=== PATIENT | female | born 1985 | race Caucasian/White ===

== ENCOUNTER 2019-10-22 21:40 | Inpatient (IN) ==
[2019-10-22] MEDS ORDERED: Lactated Ringers 1000 ml BAG 1,000 ML IV ONE (22:44)
[2019-10-22] MEDS ORDERED: Lactated Ringers 1000 ml BAG 1,000 ML IV SCH (23:00)
[2019-10-23] LABS: Urine Benzodiazepine Screen None Detected (None Detect); Urine Cannabinoids Screen None Detected (None Detect)
[2019-10-23] MEDS ORDERED: Oxytocin in LR 20 UNITS/1,000 ML BAG IVPB ONE (00:40)
[2019-10-23] MEDS ORDERED: Oxytocin 10 UNITS/ML 1 ML VIAL ONE (00:40)
[2019-10-23 01:34] LABS: Hematocrit 35 % (35-47); Mean Corpuscular HGB Conc 34 g/dL (31-36); Mean Corpuscular Hemoglobin 32 pg (27-31); Mean Corpuscular Volume 94 fL (80-97); Platelet Count 239 10^3/uL (150-450); Red Blood Count 3.72 10^6 /uL (3.70-4.87); Red Cell Distribution Width 14 % (10-15); White Blood Count 19.2 10^3/uL (3.5-10.8)
[2019-10-23] MEDS ORDERED: Lidocaine 1% VIAL 10 MG/ML VIAL ONE (02:23)
[2019-10-23] MEDS ORDERED: Methylergonovine 0.2 mg AMPULE 1 ml AMP ONE (02:23)
[2019-10-23] MEDS ORDERED: Methylergonovine 0.2 mg AMPULE 1 ml AMP IM ONE (02:29)
[2019-10-23] MEDS ORDERED: Oxytocin 10 UNITS/ML 1 ML VIAL IM ONE (02:29)
[2019-10-23] MEDS ORDERED: Glycerin ADULT 2.4 gm SUPP PR PRN (02:29)
[2019-10-23] MEDS ORDERED: Ammonia Inhalant 1 EA AMP ONE (02:58)
[2019-10-23] MEDS ORDERED: Oxytocin in LR 20 UNITS/1,000 ML BAG IVPB SCH (03:00)
[2019-10-23] MEDS ORDERED: Lactated Ringers 1000 ml BAG 1,000 ML IV SCH (03:00)
[2019-10-23 03:38] LABS: Urine Opiates Screen None Detected (None Detect)
[2019-10-23] MEDS: Witch Hazel PAD JAR TOPICAL PRN (04:37)
[2019-10-23] MEDS: Dibucaine 1% OINT 28.35 GM TUBE PR PRN (04:37)
[2019-10-24 08:10] LABS: ABS Basophils 0.1 10^3/ul (0-0.2); ABS Eosinophils 0.2 10^3/ul (0-0.6); ABS Lymphocytes 2.6 10^3/ul (1.0-4.8); ABS Monocytes 0.8 10^3/ul (0-0.8); ABS Neutrophils 9.7 10^3/ul (1.5-7.7); Eosinophil % 1.5 %; Hematocrit 26 % (35-47); Hemoglobin 9.1 g/dL (12.0-16.0); Lymphocyte % 19.5 %; Mean Corpuscular HGB Conc 35 g/dL (31-36); Mean Corpuscular Hemoglobin 33 pg (27-31); Mean Corpuscular Volume 94 fL (80-97); Mean Platelet Volume 7.4 fL (7.4-10.4); Platelet Count 204 10^3/uL (150-450); Red Blood Count 2.76 10^6 /uL (3.70-4.87); Red Cell Distribution Width 13 % (10-15); White Blood Count 13.4 10^3/uL (3.5-10.8)
[2019-10-25 07:55] VITALS: BP 109/66
[2019-10-25] MEDS: Dibucaine 1% OINT 28.35 GM TUBE PR PRN (14:41)
[2019-10-25] MEDS: Witch Hazel PAD JAR TOPICAL PRN (14:41)
== END 2019-10-25 17:10 | disposition home or self-care (01) | DRG 560 ==
LOC: MCHOBOUT 21:40 → MCHOB 22:20
PROVIDERS: ADMIT Advanced Practice Midwife; ATTEND Advanced Practice Midwife

== ENCOUNTER 2021-08-01 18:35 | Inpatient (IN) ==
[2021-08-01] MEDS ORDERED: Buffered Lidocaine 1% SYRIN 1 ml INTRADERM ONE (19:18)
[2021-08-01] MEDS ORDERED: Lactated Ringers 1000 ml BAG 1,000 ML IV ONE (19:18)
[2021-08-01] MEDS ORDERED: Lactated Ringers 1000 ml BAG 1,000 ML IV SCH ×2 (20:00→22:00)
[2021-08-01] MEDS ORDERED: Oxytocin in LR 20 UNITS/1,000 ML BAG IVPB ONE (20:02)
[2021-08-01 20:09] LABS: ABS Eosinophils 0.1 10^3/ul (0-0.6); ABS Lymphocytes 2.1 10^3/ul (1.0-4.8); ABS Monocytes 0.7 10^3/ul (0-0.8); ABS Neutrophils 6.6 10^3/ul (1.5-7.7); Eosinophil % 0.8 %; Hematocrit 38 % (35-47); Hemoglobin 12.6 g/dL (12.0-16.0); Lymphocyte % 21.7 %; Mean Corpuscular HGB Conc 33 g/dL (31-36); Mean Corpuscular Hemoglobin 31 pg (27-31); Mean Corpuscular Volume 94 fL (80-97); Mean Platelet Volume 7.8 fL (7.4-10.4); Platelet Count 252 10^3/uL (150-450); Red Blood Count 4.08 10^6 /uL (3.70-4.87); Red Cell Distribution Width 13 % (10-15); White Blood Count 9.5 10^3/uL (3.5-10.8)
[2021-08-01 20:11] LABS: Urine Benzodiazepine Screen None Detected (None Detect); Urine Cannabinoids Screen None Detected (None Detect); Urine Opiates Screen None Detected (None Detect)
[2021-08-01] MEDS ORDERED: Glycerin ADULT 2.4 gm SUPP PR PRN (21:13)
[2021-08-01] MEDS ORDERED: Oxytocin in LR 20 UNITS/1,000 ML BAG IVPB SCH (22:00)
[2021-08-01] MEDS: Dibucaine 1% OINT 28.35 GM TUBE PR PRN (22:14)
[2021-08-01] MEDS: Witch Hazel PAD JAR TOPICAL PRN (22:14)
[2021-08-02 06:49] LABS: ABS Eosinophils 0.1 10^3/ul (0-0.6); ABS Lymphocytes 1.7 10^3/ul (1.0-4.8); ABS Monocytes 0.7 10^3/ul (0-0.8); ABS Neutrophils 8.5 10^3/ul (1.5-7.7); Eosinophil % 0.8 %; Hematocrit 28 % (35-47); Hemoglobin 9.4 g/dL (12.0-16.0); Lymphocyte % 15.6 %; Mean Corpuscular HGB Conc 34 g/dL (31-36); Mean Corpuscular Hemoglobin 32 pg (27-31); Mean Corpuscular Volume 94 fL (80-97); Mean Platelet Volume 7.4 fL (7.4-10.4); Platelet Count 224 10^3/uL (150-450); Red Blood Count 2.93 10^6 /uL (3.70-4.87); Red Cell Distribution Width 13 % (10-15)
[2021-08-02] MEDS: Witch Hazel PAD JAR TOPICAL PRN (16:59)
[2021-08-02] MEDS: Dibucaine 1% OINT 28.35 GM TUBE PR PRN (16:59)
[2021-08-03 08:59] VITALS: BP 103/58
== END 2021-08-03 12:47 | disposition home or self-care (01) | DRG 560 ==
LOC: MCHOBOUT 18:35 → MCHOB 19:13
PROVIDERS: ADMIT Midwife; ATTEND Midwife